=== PATIENT | female | born 1965 | race Caucasian/White ===

== ENCOUNTER → 2021-09-04 | Day surgery (SDC) | payer OTHER ==
[~2021-09-04] VITALS: Ht 170.2 cm; Wt 65.8 kg
[~2021-09-04] MED LIST: BRIN20TA PO; DITROPAN5 MG PO; ESTRACE1 MG PO; OMEPRAZOLE40 MG PO; TRAZODONE 50MG50 MG PO; ZETIA10 MG PO
[2021-09-04 07:09] LABS: HCT 36.7 % (37.0-47.0); HGB 11.7 g/dl (12.5-16.0); MCH 26.8 pg (25.0-31.0); MCHC 31.9 g/dL (32.0-36.0); MPV 10.2 fL (6.0-9.5); RBC 4.37 M/uL (4.20-5.40); RDW 22.3 % (11.5-14.0); WBC 7.1 K/uL (4.0-10.5)
[2021-09-04 07:33] LABS: ALBUMIN 3.3 g/dL (3.4-5.0); BILIRUBIN - TOTAL 0.2 mg/dL (0.2-1.0); BUN/CREAT RATIO (CALC) 22.8 RATIO; CREATININE 0.57 mg/dL (0.51-0.95); GLOBULIN (CALCULATION) 2.9 g/dL; POTASSIUM 4.1 mmol/L (3.5-5.1); TOTAL PROTEIN 6.2 g/dL (6.4-8.2)
== END | disposition home or self-care (01) ==
LOC: FAS 06:39
PROVIDERS: Surgery
DX: K31.9 Disease of stomach and duodenum, unspecified (principal); K21.9 Gastro-esophageal reflux disease without esophagitis; K29.70 Gastritis, unspecified, without bleeding; Z88.2 Allergy status to sulfonamides
CPT/HCPCS: 36415; 80053; J2250; J2704; J7120

== ENCOUNTER → 2021-11-26 | Day surgery (SDC) | payer OTHER ==
[~2021-11-26] VITALS: Ht 170.2 cm; Wt 65.8 kg
[~2021-11-26] MED LIST changes: +NORCO 5-325 TA1 EACH PO; +ONDANSETRON ODT8 MG PO
[2021-11-26 08:04] LABS: HCT 35.6 % (37.0-47.0); HGB 11.8 g/dl (12.5-16.0); MCH 29.5 pg (25.0-31.0); MCHC 33.1 g/dL (32.0-36.0); MPV 10.6 fL (6.0-9.5); RDW 15.9 % (11.5-14.0); WBC 7.9 K/uL (4.0-10.5)
[2021-11-26 08:18] LABS: ALBUMIN 3.2 g/dL (3.4-5.0); BILIRUBIN - TOTAL 0.2 mg/dL (0.2-1.0); BUN/CREAT RATIO (CALC) 20.7 RATIO; CREATININE 0.58 mg/dL (0.51-0.95); GLOBULIN (CALCULATION) 3.1 g/dL; POTASSIUM 4.1 mmol/L (3.5-5.1); TOTAL PROTEIN 6.3 g/dL (6.4-8.2)
== END | disposition home or self-care (01) ==
LOC: FAS 07:25
PROVIDERS: Surgery
DX: K81.1 Chronic cholecystitis (principal); K82.0 Obstruction of gallbladder; F17.210 Nicotine dependence, cigarettes, uncomplicated; Z88.2 Allergy status to sulfonamides; K58.9 Irritable bowel syndrome, unspecified
CPT/HCPCS: 36415; 74300; 80053; C1758; J1100; J2250; J2405; J2704; J2710; J3010; J7120; Q9967